=== PATIENT | male | born 1990 | race Caucasian/White ===

== ENCOUNTER 2017-01-19 09:09 | Emergency (ER) | payer MEDICAID ==
[2017-01-19] MEDS ORDERED: IBUPROFEN 200 MG TAB PO ONE (09:37)
[2017-01-19] MEDS ORDERED: TDAP ADULT 0.5 ML INJ (BOOSTRIX) IM ONE (09:37)
--- NOTE | 2017-01-19 10:00 | UCPHY ---
H & P Time Seen by Provider: 01/19/17 09:59 Patient Type: Established HPI/ROS: Chief complaint. Elbow injury HPI. 26-year-old male was wrestling with friends yesterday and banged his left elbow into a broken metal part on his motorcycle. Today pain and swelling. Has a puncture wound to the inside of the left elbow. No fever. No other injuries. Patient is right handed ROS Constitutional. no fever/chills, no weakness Eyes. no problems with vision ENT. no sore throat, no nasal drainage Cardiovascular. no chest pain Respiratory. no shortness of breath, no cough Abdominal. no abdominal pain, no nausea/vomiting, no diarrhea . no problems urinating MS. Left elbow pain Skin. Puncture wound inner left elbow Lymph. no swollen glands Neuro. no headache, no dizziness, no difficulty walking or with speech Past Medical/Surgical History: Past medical history hypertension, tricuspid regurgitation, migraines, SVT Social History: Single, daily smoker, no alcohol Smoking Status: Current every day smoker Physical Exam: General Appearance: Alert well-developed male moderate distress vital signs are stable Eyes: Pupils equal and round no pallor or injection. ENT, Mouth: Mucous membranes are moist. Respiratory: There are no retractions, lungs are clear to auscultation. Cardiovascular: Regular rate and rhythm. Gastrointestinal: Abdomen is soft and nontender, no masses, bowel sounds normal. Neurological: Awake and alert, sensory and motor exams grossly normal. Skin: Puncture wound to the inner left elbow. No obvious swelling or evidence of infection or retained foreign body Musculoskeletal: Neck is supple nontender. Extremities painful range of motion diffusely about the left elbow without swelling or deformity Psychiatric: Patient is oriented X 3, there is no agitation. Constitutional: Initial Vital Signs Temperature (C) 37.1 C 01/19/17 09:26 Heart Rate 112 H 01/19/17 09:26 Respiratory Rate 22 H 01/19/17 09:26 Blood Pressure 171/92 H 01/19/17 09:26 O2 Sat (%) 98 01/19/17 09:26 O2 Delivery Mode Room Air Allergies/Adverse Reactions: neomycin [Neomycin] Allergy (Severe, Verified 01/19/17 09:26) Hives bacitracin [Bacitracin] Allergy (Intermediate, Verified 01/19/17 09:26) Hives cefixime [From Suprax] Allergy (Intermediate, Verified 01/19/17 09:26) Hives hydrocodone bitartrate [From Vicodin] Allergy (Intermediate, Verified 01/19/17 09:26) Hives cephalexin monohydrate [From Keflex] Allergy (Mild, Verified 01/19/17 09:26) Hives Home Medications: Medication Instructions Recorded Sulfamethox/Tmp 800/160 mg 1 tab PO BID #14 tab 01/19/17 [Bactrim Ds] oxyCODONE/APAP 5/325 [Percocet 1 tab PO Q4-6PRN PRN #8 tab 01/19/17 5/325] Medical Decision Making - Diagnostics Imaging: Imaging Impressions Elbow X-Ray 01/19/17 09:37 Impression: There is no acute osseous abnormality identified. X-ray left elbow interpreted by me shows no evidence of fracture dislocation or retained foreign body ED Course/Re-evaluation: Re-evaluation 10:00 a.m.. Patient is stable. Discussed imaging study results, treatment plan, criteria for return importance of follow-up and further evaluation. They expressed understanding and agreement Differential Diagnosis: The x-ray is negative. I considered fracture, dislocation, retained foreign body. We discussed infection prone this of a puncture wound and criteria for return. I believe this is contusion with puncture wound - Data Points Medications Given: Discontinued Medications Diphtheria/Tetanus/Acell Pertussis (Boostrix) 0.5 ml IM .ONCE ONE Stop: 01/19/17 09:38 Last Admin: 01/19/17 09:45 Dose: 0.5 ml Ibuprofen (Motrin) 600 mg PO EDNOW ONE Stop: 01/19/17 09:38 Last Admin: 01/19/17 09:45 Dose: 600 mg Departure - Departure Disposition: Home, Routine, Self-Care Clinical Impression: Puncture wound Contusion of elbow, left Qualifiers: Encounter type: initial encounter Qualified Code(s): S50.02XA - Contusion of left elbow, initial encounter Condition: Good Instructions: Contusion in Adults (ED) Additional Instructions: Bactrim as antibiotic. Ibuprofen 600 mg every 6 hours for discomfort. Percocet in addition. Ice for the next 24 hours. Activity as tolerated. Return for increased pain, swelling, redness. Recheck in 2-3 days unless back to normal Work on quitting smoking Referrals: Jhonatan Amaral MD [Primary Care Provider] - 2-3 days, if not improved Prescriptions: oxyCODONE/APAP 5/325 [Percocet 5/325] 1 tab PO Q4-6PRN PRN #8 tab PRN Reason: Pain, Moderate Sulfamethox/Tmp 800/160 mg [Bactrim Ds] 1 tab PO BID #14 tab - PQRS PQRS Measurement: 134: Depression screening and followup, PRIME MD-PHQ2 (12 years and older) Over the last 2 weeks, how often have you been bothered by any of the following problems? 1. Feeling down, depressed, or hopeless? 2. Little interest or pleasure in doing things? Patient answered no to both 1 and 2 130: Documentation of medications. Reviewed all patient medications, doses, route and frequency. 226: Do you smoke? Yes, counseled to stop.
[2017-01-19 10:22] VITALS: BP 137/80; PULSE 69; RESP 16; TEMP 98.2; O2SAT 95
== END 2017-01-19 10:18 | disposition home or self-care (01) ==
LOC: CED 09:09
PROC: 3E0234Z Introduction of Serum, Toxoid and Vaccine into Muscle, Percutaneous Approach (ICD-10-PCS; principal; 2017-01-19)
DX: S50.02XA Contusion of left elbow, initial encounter (principal); W22.8XXA Striking against or struck by other objects, initial encounter; I10 Essential (primary) hypertension; F17.200 Nicotine dependence, unspecified, uncomplicated
CPT/HCPCS: 73080-PO; 99214-PO; A4565; G0463-PO

== ENCOUNTER 2017-08-03 09:50 | Emergency (ER) | payer OTHER, MEDICAID ==
[2017-08-03 09:58] VITALS: BP 153/83; PULSE 74; RESP 16; TEMP 98.6; O2SAT 98
--- NOTE | 2017-08-03 09:59 | EDPHY ---
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 It smashed his hand and twisted his wrist. He has an abrasion to the dorsum of his left hand but complains of pain over the metacarpal bones in his index finger and thumb. He states that his wrist is sore from being twisted. He has normal movement and sensation and pulses. He denies other injuries. REVIEW OF SYSTEMS: Constitutional: denies: chills, fever, recent illness, recent injury EENTM: denies: blurred vision, double vision, nose congestion Respiratory: denies: cough, shortness of breath Cardiac: denies: chest pain, irregular heart rate, lightheadedness, palpitations Gastrointestinal/Abdominal: denies: abdominal pain, diarrhea, nausea, vomiting, blood streaked stools Genitourinary: denies: dysuria, frequency, hematuria, pain Musculoskeletal: See HPI Skin: denies: lesions, rash, jaundice, bruising Neurological: denies: headache, numbness, paresthesia, tingling, dizziness, weakness Hematologic/Lymphatic: denies: blood clots, easy bleeding, easy bruising Immunologic/allergic: denies: HIV/AIDS, transplant EXAM: GENERAL: Well-appearing, well-nourished and in no acute distress. HEAD: Atraumatic, normocephalic. EYES: Pupils equal round and reactive to light, extraocular movements intact, sclera anicteric, conjunctiva are normal. ENT: TMs normal, nares patent, oropharynx clear without exudates. Moist mucous membranes. NECK: Normal range of motion, supple without lymphadenopathy or JVD. LUNGS: Breath sounds clear to auscultation bilaterally and equal. No wheezes rales or rhonchi. HEART: Regular rate and rhythm without murmurs, rubs or gallops. ABDOMEN: Soft, nontender, normoactive bowel sounds. No guarding, no rebound. No masses appreciated. BACK: No CVA tenderness, no spinal tenderness, step-offs or deformities EXTREMITIES: Abrasion to the dorsum of left hand, tenderness to left wrist and metacarpal bones. No obvious deformity. Pulses intact. Capillary refill intact, normal movement but pain with movement. NEUROLOGICAL: Cranial nerves II through XII grossly intact. Normal speech, normal gait. 5/5 strength, normal movement in all extremities, normal sensation PSYCH: Normal mood, normal affect. SKIN: Warm, dry, normal turgor, no visible rashes or lesions. Source: Patient Exam Limitations: No limitations - Personal History Tetanus Vaccine Date: within 10 years - Medical/Surgical History Hx Asthma: No Hx Chronic Respiratory Disease: No Hx Diabetes: No Hx Cardiac Disease: No Hx Renal Disease: No Hx Cirrhosis: No Hx Alcoholism: No Hx HIV/AIDS: No Hx Splenectomy or Spleen Trauma: No Other PMH: htn, tricuspid & MILD regurg. LT EYE ORBITAL FX REPAIR 2007, MIGRAINES IN PAST. SVT - Family History Significant Family History: No pertinent family hx - Social History Smoking Status: Current every day smoker Alcohol Use: Sober Drug Use: None Constitutional: Initial Vital Signs Temperature (C) 37 C 08/03/17 09:53 Heart Rate 74 08/03/17 09:53 Respiratory Rate 16 08/03/17 09:53 Blood Pressure 153/83 H 08/03/17 09:53 O2 Sat (%) 98 08/03/17 09:53 O2 Delivery Mode Room Air Allergies/Adverse Reactions: neomycin [Neomycin] Allergy (Severe, Verified 08/03/17 09:58) Hives bacitracin [Bacitracin] Allergy (Intermediate, Verified 08/03/17 09:58) Hives cefixime [From Suprax] Allergy (Intermediate, Verified 08/03/17 09:58) Hives hydrocodone bitartrate [From Vicodin] Allergy (Intermediate, Verified 08/03/17 09:58) Hives cephalexin monohydrate [From Keflex] Allergy (Mild, Verified 08/03/17 09:58) Hives Home Medications: Medication Instructions Recorded NK [No Known Home Meds] 08/03/17 Medical Decision Making - Diagnostics Imaging Results: Imaging Impressions Hand X-Ray 08/03/17 09:57 Impression: Normal. LEFT WRIST, 4 Views, at 9:56 AM There is no fracture or dislocation. The joint spaces have a normal thickness. There is no periostitis, marginal erosion, radiopaque foreign body, or chondrocalcinosis. Impression: Normal. If there is further clinical concern regarding an occult osseous abnormality, conservative management and short-term repeat radiographic follow-up in 7-14 days could be considered. Wrist X-Ray 08/03/17 09:57 Impression: Normal. LEFT WRIST, 4 Views, at 9:56 AM There is no fracture or dislocation. The joint spaces have a normal thickness. There is no periostitis, marginal erosion, radiopaque foreign body, or chondrocalcinosis. Impression: Normal. If there is further clinical concern regarding an occult osseous abnormality, conservative management and short-term repeat radiographic follow-up in 7-14 days could be considered. X-ray: Wrist and hand was obtained. I viewed the images myself on the PACS system. My interpretation of the images is: negative for fracture . The radiologist interpretation is pending. ED Course/Re-evaluation: Patient is relieved with the x-ray results. Will treat him with [place] wrap and pain medication. He is happy with this and declines further workup or testing. Differential Diagnosis: Partial list of the Differential diagnosis considered include but were not limited to; abrasion, contusion, fracture and although unlikely based on the history and physical exam, I also considered dislocation, infection. I discussed these differential diagnoses and the plan with the patient as well as the usual and expected course. The patient understands that the diagnosis is provisional and that in medicine we are not always correct and that further workup is often warranted. Usual and customary warnings were given. All of the patient's questions were answered. The patient was instructed to return to the emergency department should the symptoms at all worsen or return, otherwise to followup with the physician as we discussed. - Data Points Medications Given: Discontinued Medications Acetaminophen (Tylenol) 1,000 mg PO EDNOW ONE Stop: 08/03/17 10:34 Last Admin: 08/03/17 10:35 Dose: 1,000 mg Departure - Departure Disposition: Home, Routine, Self-Care Clinical Impression: Abrasion Contusion of left hand Qualifiers: Encounter type: initial encounter Qualified Code(s): S60.222A - Contusion of left hand, initial encounter Condition: Fair Instructions: Contusion in Adults (ED), Abrasion (ED) Additional Instructions: Followup with your employer's occupational health provider as needed. Referrals: Jhonatan Amaral MD [Medical Doctor] - As per Instructions
[2017-08-03] MEDS ORDERED: ACETAMINOPHEN 500 MG TAB ONE (10:32)
[2017-08-03] MEDS ORDERED: ACETAMINOPHEN 500 MG TAB PO ONE (10:33)
== END 2017-08-03 11:45 | disposition home or self-care (01) ==
LOC: CED 09:50
DX: S60.222A Contusion of left hand, initial encounter (principal); S60.512A Abrasion of left hand, initial encounter; S60.812A Abrasion of left wrist, initial encounter; I10 Essential (primary) hypertension; F17.200 Nicotine dependence, unspecified, uncomplicated; W23.1XXA Caught, crushed, jammed, or pinched between stationary objects, initial encounter; Y92.69 Other specified industrial and construction area as the place of occurrence of the external cause; Y99.0 Civilian activity done for income or pay; Y93.89 Activity, other specified
CPT/HCPCS: 73110-PO; 73130-PO